=== PATIENT | male | born 1975 | race Caucasian/White ===

== ENCOUNTER 2017-04-07 13:50 | Emergency (ER) | payer MEDICAID ==
[2017-04-07 14:04] VITALS: BP 113/80
--- NOTE | 2017-04-07 14:32 | UC ---
Back Pain HPI - HPI Summary HPI Summary: is treated with 60 mg of Methadone daily for back pain---past 2 days has pain lateral to spine seems to be on both sides of back on and off - History of Current Complaint Chief Complaint: UCBackPain Stated Complaint: LOWER BACK INJURY Time Seen by Provider: 04/07/17 14:15 Hx Obtained From: Patient Onset/Duration: Gradual Onset, Lasting Days - 2, Still Present Timing: Constant Severity Initially: Moderate Severity Currently: Moderate Pain Intensity: 6 Pain Scale Used: 0-10 Numeric Back Pain: Is Discrete @ - right and left side of spinf lumbar to thorasic spine Character: Aching, Throbbing, Spasmodic, Stiffness Aggravating: Movement, Lifting, Bending Alleviating: Rest, Position Associated Signs And Symptoms: Positive: Negative Related History: Previous Back Injury - Allergies/Home Medications Allergies/Adverse Reactions: Allergies Allergy/AdvReac Type Severity Reaction Status Date / Time Bee Venom Allergy Severe Anaphylatic Verified 07/22/14 11:50 Shock Sulfa Drugs Allergy Unknown Verified 07/22/14 11:50 Reaction Details PMH/Surg Hx/FS Hx/Imm Hx Previously Healthy: No - chronic back pain Endocrine History Of: Denies: Diabetes Cardiovascular History Of: Denies: Cardiac Disorders, Hypertension, Pacemaker/ICD GI/ History Of: Reports: Ulcer - Surgical History Surgical History: Yes Surgery Procedure, Year, and Place: Lt KNEE- 20+ YRS AGO. neck/spinal surgery - 3 vertebrae replaced. 2012 - Family History Known Family History: Positive: None Family History: no cardio vascular issues reported in family lineage - Social History Occupation: Employed Full-time - contractor Lives: With Family Alcohol Use: Occasionally Alcohol Amount: 3 beers Substance Use Type: Marijuana Smoking Status (MU): Heavy Every Day Tobacco Smoker Type: Cigarettes Amount Used/How Often: 1 PPD Length of Time of Smoking/Using Tobacco: since age 6 Have You Smoked in the Last Year: Yes Cessation Counseling: Counseled 3+Min - 10 Min - Immunization History Most Recent Influenza Vaccination: NEVER Most Recent Tetanus Shot: 1 YR AGO Most Recent Pneumonia Vaccination: UNKNOWN Review of Systems Constitutional: Negative Skin: Negative Eyes: Negative ENT: Negative Respiratory: Negative Cardiovascular: Negative Gastrointestinal: Negative Genitourinary: Negative Motor: Negative Neurovascular: Negative Musculoskeletal: Arthralgia - low/mid back pain, Myalgia - low mid lateral back pain Neurological: Negative Psychological: Negative All Other Systems Reviewed And Are Negative: Yes Physical Exam Triage Information Reviewed: Yes Appearance: No Pain Distress, Pain Distress - mild, Thin Vital Signs: Initial Vital Signs Temp 99.1 F 04/07/17 13:57 Pulse 95 04/07/17 13:57 Resp 16 04/07/17 13:57 BP 113/80 04/07/17 13:57 Pulse Ox 97 04/07/17 13:57 Eye Exam: Normal Eyes: Positive: Conjunctiva Clear ENT Exam: Normal ENT: Positive: Normal ENT inspection, Hearing grossly normal. Negative: Nasal congestion, Nasal drainage, Tonsillar swelling, Tonsillar exudate, Trismus, Muffled/hoarse voice Dental Exam: Normal Neck exam: Normal Neck: Positive: 1 Respiratory Exam: Normal Respiratory: Positive: No respiratory distress, No accessory muscle use Cardiovascular Exam: Normal Cardiovascular: Positive: RRR, Pulses Normal, Brisk Capillary Refill Musculoskeletal Exam: Normal Musculoskeletal: Positive: Strength Intact, No Edema, ROM Limited @ - low back Neurological Exam: Normal Neurological: Positive: Alert, Muscle Tone Normal Psychological Exam: Normal Skin Exam: Normal Back Pain Course/Dx - Course Course Of Treatment: mabic, flexeril, rest follow with pcp - Differential Dx/Diagnosis Differential Diagnosis/HQI/PQRI: Fracture, Osteoporosis, Strain, Sprain Provider Diagnoses: muscle strain low/mid back, nicotine dependant Discharge - Discharge Plan Condition: Stable Disposition: HOME Prescriptions: Cyclobenzaprine TAB* [Flexeril 10 MG TAB*] 10 mg PO TID PRN #15 tab PRN Reason: muscle spasm Meloxicam(NF) [Mobic(NF)] 7.5 mg PO DAILY PRN #40 tab PRN Reason: pain Patient Education Materials: Low Back Strain (ED), Muscle Spasm (ED), Lower Back Exercises (ED) Referrals: Willie Puente MD [Primary Care Provider] - 5 Days
== END 2017-04-07 14:53 | disposition home or self-care (01) ==
LOC: UCEAST 13:50
DX: S39.012A Strain of muscle, fascia and tendon of lower back, initial encounter (principal); X58.XXXA Exposure to other specified factors, initial encounter; Y93.9 Activity, unspecified; Y92.9 Unspecified place or not applicable; Z88.2 Allergy status to sulfonamides; Z91.030 Bee allergy status; F17.210 Nicotine dependence, cigarettes, uncomplicated; Z71.6 Tobacco abuse counseling
CPT/HCPCS: 99212; G0463

== ENCOUNTER 2018-10-28 00:36 | Emergency (ER) | payer OTHER ==
--- NOTE | 2018-10-28 01:24 | ED ---
Shortness of Breath - HPI Summary HPI Summary: The patient is a 43 y/o M presenting to [facility] with a chief complaint of sudden onset SOB that started right before arriving. He states that he was sitting on the couch when the chest tightness started, and he was feeling fine earlier in the day. He additionally c/o nonproductive cough. He reports that he's been feeling more lethargic than usual for the last month, and he notes that he's been having nausea and vomiting a few times a week for months, but he has a GI appt at the end of the month. He vomited once earlier today before onset of SOB. He takes methadone, trazadone, and other stomach medications. Heavy smoker. - History of Current Complaint Chief Complaint: EDShortnessOfBreath Time Seen by Provider: 10/28/18 01:06 Hx Obtained From: Patient Onset/Duration: Sudden Onset, Lasting Hours, Still Present Current Severity: Moderate Dyspnea At: Rest Aggrevating Factors: Nothing Alleviating Factors: Nothing Associated Signs & Symptoms: Cough (Nonproductive) - Allergy/Home Medications Allergies/Adverse Reactions: Allergies Allergy/AdvReac Type Severity Reaction Status Date / Time bee venom protein (honey bee) Allergy Anaphylatic Verified 10/28/18 01:05 Shock Sulfa (Sulfonamide Allergy Unknown Verified 10/28/18 01:05 Antibiotics) Reaction Details PMH/Surg Hx/FS Hx/Imm Hx Endocrine/Hematology History: Denies: Hx Diabetes, Hx Sickle Cell Disease Cardiovascular History: Denies: Hx Hypertension, Hx Pacemaker/ICD Respiratory History: Denies: Other Respiratory Problems/Disorders GI History: Reports: Hx Gastroesophageal Reflux Disease, Hx Ulcer Denies: Other GI Disorders History: Denies: Other Problems/Disorders Sensory History: Reports: Hx Contacts or Glasses - GLASSES Denies: Hx Hearing Aid Opthamlomology History: Reports: Hx Contacts or Glasses - GLASSES Psychiatric History: Denies: Hx Panic Disorder - Surgical History Surgery Procedure, Year, and Place: Lt KNEE- 20+ YRS AGO. neck/spinal surgery - 3 vertebrae replaced. 2012 Hx Anesthesia Reactions: No - PT REPORTS HIGH TOLERANCE TO ANESTHESIA Infectious Disease History: No Infectious Disease History: Denies: Traveled Outside the [place] in Last 30 Days - Family History Known Family History: Negative: Cardiac Disease, Hypertension Family History: no cardio vascular issues reported in family lineage - Social History Alcohol Use: Daily Alcohol Amount: 10 beers per day Substance Use Type: Reports: Marijuana Smoking Status (MU): Heavy Every Day Tobacco Smoker Type: Cigarettes Amount Used/How Often: 1 PPD Length of Time of Smoking/Using Tobacco: since age 6 Have You Smoked in the Last Year: Yes Review of Systems Positive: Other - lethargy Positive: Other - chest tightness Positive: Shortness Of Breath, Cough - nonproductive Positive: Vomiting, Nausea All Other Systems Reviewed And Are Negative: Yes Physical Exam - Summary Physical Exam Summary: Appearance: Well-appearing, Well-nourished, lying in bed comfortably Skin: Warm, dry, no obvious rash Eyes: sclera anicteric, no conjunctival pallor ENT: mucous membranes moist, pharynx appears normal Neck: Supple, nontender Respiratory: Clear to auscultation, no signs of respiratory distress Cardiovascular: Normal S1, S2. No murmurs. Normal distal pulses in tibial and radial bilaterally. Abdomen: Soft, nontender, normal active bowel sounds present Musculoskeletal: Normal, Strength/ROM Intact Neurological: A&Ox3, awake and alert, mentation is normal, speech is fluent and appropriate Psychiatric: affect is normal, does not appear anxious or depressed Triage Information Reviewed: Yes Vital Signs On Initial Exam: Initial Vitals Temp Pulse Resp BP Pulse Ox 99 F 96 20 140/86 98 10/28/18 00:38 10/28/18 00:38 10/28/18 00:38 10/28/18 00:38 10/28/18 00:38 Vital Signs Reviewed: Yes Diagnostics - Vital Signs Vital Signs Temp Pulse Resp BP Pulse Ox 10/28/18 00:51 80 26 97 10/28/18 00:38 99 F 96 20 140/86 98 - Laboratory Result Diagrams: 10/28/18 01:24 10/28/18 01:24 Lab Statement: Any lab studies that have been ordered have been reviewed, and results considered in the medical decision making process. - Radiology CXR Radiology Interpretation Completed By: Radiologist Summary of Radiographic Findings: No acute disease. ED physician has reviewed this report. - EKG 00:42 Cardiac Rate: NL - 81 BPM EKG Rhythm: Sinus Rhythm Summary of EKG Findings: NSR at 81BPM, P waves, QRS complex, and T waves are within normal limits, T waves and intervals are normal, no ischemic changes. This is a normal EKG. Re-Evaluation - Re-Evaluation First Eval Re-Evaluation Time: 04:40 Change: Unchanged Comment: I spoke with the patient concerning discharge home. Course/Dx - Course Course Of Treatment: The patient is a 43 y/o M presenting to [facility] with a chief complaint of sudden onset SOB that started right before arriving while he was sitting down. He additionally c/o nonproductive cough, lethargy, and nausea and vomiting. He vomited once earlier today before onset of SOB, but he has been having GI issues for a few months and will see a provider at the end of the month. He takes methadone, trazadone, and other stomach medications. Heavy smoker. Physical exam is normal. In the ED course, bloodwork is unremarkable. EKG is normal. CXR is negative. The cause of the patient's dyspnea is not entirely clear, but he appears improved and his workup was not demonstrated any serious abnormalities.. He will be discharged home with follow up with PCP. He agrees with this plan and understands the need for return if symptoms worsen. - Diagnoses Provider Diagnoses: Dyspnea Discharge - Sign-Out/Discharge Documenting (check all that apply): Patient Departure - Patient will be discharged home. - Discharge Plan Condition: Good Disposition: HOME Patient Education Materials: Noncardiac Chest Pain (ED) Referrals: Randell Fleming MD [Medical Doctor] - (As scheduled) - Billing Disposition and Condition Condition: GOOD Disposition: Home - Attestation Statements Document Initiated by Rogelio: Yes Documenting Scribe: Melly Roper Provider For Whom Rogelio is Documenting (Include Credential): MD Renee Chunibe Attestation: Melly Arriaza scribed for Dr. Yayo Del Rosario MD on 10/28/18 at 0655. Scribe Documentation Reviewed: Yes Provider Attestation: The documentation as recorded by the Melly murphy accurately reflects the service I personally performed and the decisions made by me, Dr. Yayo Del Rosario MD Status of Scribnoemy Document: Viewed
[2018-10-28 01:32] LABS: ABS Basophils 0.1 10^3/ul (0-0.2); ABS Eosinophils 0.4 10^3/ul (0-0.6); ABS Lymphocytes 1.7 10^3/ul (1.0-4.8); ABS Monocytes 0.7 10^3/ul (0-0.8); ABS Neutrophils 4.1 10^3/ul (1.5-7.7); ABS Nucleated RBC 0 10^3/ul; Eosinophil % 6.3 %; Hematocrit 43 % (42-52); Lymphocyte % 24.1 %; Mean Corpuscular HGB Conc 35 g/dl (31-36); Mean Corpuscular Hemoglobin 32 pg (27-31); Mean Corpuscular Volume 93 fL (80-94); Mean Platelet Volume 7.5 fL (7.4-10.4); Nucleated Red Blood Cells % 0.1; Platelet Count 302 10^3/ul (150-450); Red Blood Count 4.67 10^6/ul (4.00-5.40); Red Cell Distribution Width 13 % (10.5-15)
[2018-10-28 01:49] LABS: EGFR Non-African American 98.8 (>60)
[2018-10-28 05:01] VITALS: BP 128/82
== END 2018-10-28 05:05 | disposition home or self-care (01) ==
LOC: ED 00:36
DX: R06.00 Dyspnea, unspecified (principal); R06.02 Shortness of breath; R07.89 Other chest pain; R11.2 Nausea with vomiting, unspecified; F17.210 Nicotine dependence, cigarettes, uncomplicated; Z88.2 Allergy status to sulfonamides
CPT/HCPCS: 36415; 71046; 80053; 83605; 84484; 85025; 85379; 93005; 99283

== ENCOUNTER 2023-11-24 11:32 | Inpatient (IN) ==
[2023-11-24] MEDS: LACTATED RINGERS IV ONE (12:16)
[2023-11-24 12:37] LABS: ABS Lymphocytes 0.2 10^3/uL (1.0-4.8); ABS Monocytes 0.3 10^3/uL (0.0-1.1); ABS Nucleated RBC 0.01 10^3/ul; Eosinophil % 0.1 %; Hematocrit 38.6 % (38-53); Hemoglobin 13.7 g/dL (13.2-16.3); Mean Corpuscular Hemoglobin 32.1 pg (27-33); Mean Corpuscular Hgb Conc 35.5 g/dL (31-36); Mean Corpuscular Volume 90.4 fL (80-97); Nucleated Red Blood Cells % 0.2 %/100WBC (0.0-0.8); Platelet Count 211 10^3/uL (150-450); Red Blood Count 4.27 10^6/uL (4.06-5.63); Red Cell Distribution Width 15.8 % (12-17); White Blood Count 4.5 10^3/uL (3.6-10.2)
[2023-11-24 12:40] LABS: Activated Partial Thrombo Time 35.6 seconds (26.0-38.0); INR 1.15 (0.83-1.13)
[2023-11-24 12:53] LABS: Albumin 3.9 g/dL (3.2-5.2); Albumin/Globulin Ratio 1.2 (1-3); C Reactive Protein 341.06 mg/L (<8.01); Calcium 9.2 mg/dL (8.6-10.3); Creatinine, Serum 0.63 mg/dL (0.67-1.17); Globulin 3.2 g/dL (2-4); Potassium 2.9 mmol/L (3.5-5.0); Total Bilirubin 0.7 mg/dL (0.2-1.0); Total Protein 7.1 g/dL (6.4-8.9); eGFR CKD-EPI 115.9 (>60)
[2023-11-24] MEDS: Cefepime 2 GM in Dextrose 2 GM/50 ML BAG IV ONE (14:06)
[2023-11-24 14:21] LABS: High Sensitivity Troponin 1 Hr 14 pg/mL (<20)
[2023-11-24] MEDS: Acetaminophen IV 1 GM/100ML 1,000 MG/100 ML BAG IV ONE (14:21)
[2023-11-24] MEDS: KCL 20 MEQ/100 ML IVPREMIX 20 MEQ/100 ML BAG IV SCH (14:21)
[2023-11-24 22:09] LABS: Urine Appearance Cloudy; Urine Bilirubin Negative (Negative); Urine Blood Negative (Negative); Urine Color Yellow; Urine Glucose Negative (Negative); Urine Ketones 1+ (Negative); Urine Nitrite Negative (Negative); Urine Protein 2+(100 mg/dL) (Negative); Urine Specific Gravity 1.028 (1.002-1.030); Urine Urobilinogen Negative (Negative)
[2023-11-24 22:27] LABS: Urine Bacteria Absent (Absent); Urine Red Blood Cell 1+(3-5/hpf) (Absent); Urine White Blood Cell Trace(0-5/hpf) (Absent)
[2023-11-24] MEDS ORDERED: Ondansetron 4 mg VIAL 2 MG/ML 2 ml VIAL IV PRN (22:37)
[2023-11-24] MEDS: Acetaminophen IV 1 GM/100ML 1,000 MG/100 ML BAG IV PRN (22:52)
[2023-11-25] MEDS: Potassium Chloride IV 20 MEQ in Lactated Ringers 1000 ml BAG 1,000 ML IVPB SCH (01:28)
[2023-11-25] MEDS: levETIRAcetam IV 1,250 MG in NS 0.9% 100 ml BAG 100 ML IVPB SCH (01:35)
[2023-11-25] MEDS: Enoxaparin 40 MG/0.4 ML SYR SUBCUT SCH (01:37)
[2023-11-25] MEDS: Cefepime 2 GM in Dextrose 2 GM/50 ML BAG IV SCH ×2 (03:52→03:55)
[2023-11-25 08:01] LABS: ABS Lymphocytes 0.4 10^3/uL (1.0-4.8); ABS Monocytes 0.2 10^3/uL (0.0-1.1); ABS Neutrophils 4.8 10^3/uL (1.5-7.6); Eosinophil % 0.2 %; Hematocrit 33.1 % (38-53); Hemoglobin 11.8 g/dL (13.2-16.3); Lymphocyte % 6.6 %; Mean Corpuscular Hemoglobin 32.3 pg (27-33); Mean Corpuscular Hgb Conc 35.5 g/dL (31-36); Mean Corpuscular Volume 91.1 fL (80-97); Mean Platelet Volume 7.2 fL (7.5-11.2); Platelet Count 170 10^3/uL (150-450); Red Blood Count 3.63 10^6/uL (4.06-5.63); Red Cell Distribution Width 15.9 % (12-17); White Blood Count 5.4 10^3/uL (3.6-10.2)
[2023-11-25 08:22] LABS: Calcium 8.1 mg/dL (8.6-10.3); Creatinine, Serum 0.38 mg/dL (0.67-1.17); Magnesium 1.9 mg/dL (1.9-2.7); Potassium 3.2 mmol/L (3.5-5.0)
[2023-11-25] MEDS: KCL 20 MEQ/100 ML IVPREMIX 20 MEQ/100 ML BAG IV SCH (11:00)
[2023-11-25 11:55] LABS: Hematocrit 27.5 % (38-53); Hemoglobin 9.9 g/dL (13.2-16.3)
[2023-11-25 16:16] LABS: Hematocrit 31.3 % (38-53)
[2023-11-25] MEDS ORDERED: Pantoprazole 80 mg in NS BAG 80 MG/250 ML BAG IV SCH (17:00)
[2023-11-25] MEDS ORDERED: Lorazepam PYXIS KEY PRN (17:07)
[2023-11-25] MEDS: Pantoprazole VIAL 40 MG VIAL IV ONE (17:43)
[2023-11-25] MEDS: Iohexol 350 (CONTRAST) 500 ML MDV IV ONE (17:43)
[2023-11-25] MEDS: Morphine 2 MG/ML SYRINGE IV SCH (18:07)
[2023-11-26] MEDS: Lactated Ringers 1000 ml BAG 1,000 ML IV SCH (00:07)
[2023-11-26] MEDS: LORazepam 2 mg VIAL 1 ml IV PUSH PRN (01:11)
[2023-11-27] MEDS: Morphine ORAL CONCENTRATE 5 MG/0.25 ML ORAL.SYRIN SL PRN (21:50)
[2023-11-28] MEDS: Morphine ORAL CONCENTRATE 5 MG/0.25 ML ORAL.SYRIN SL PRN (03:58)
[2023-11-28 09:56] LABS: ABS Eosinophils 0.1 10^3/uL (0.0-0.5); ABS Lymphocytes 0.7 10^3/uL (1.0-4.8); ABS Monocytes 0.3 10^3/uL (0.0-1.1); ABS Neutrophils 1.9 10^3/uL (1.5-7.6); Eosinophil % 2.3 %; Hematocrit 30.9 % (38-53); Hemoglobin 10.8 g/dL (13.2-16.3); Lymphocyte % 23.4 %; Mean Corpuscular Hgb Conc 34.9 g/dL (31-36); Mean Corpuscular Volume 91.7 fL (80-97); Mean Platelet Volume 6.9 fL (7.5-11.2); Nucleated Red Blood Cells % 0.1 %/100WBC (0.0-0.8); Platelet Count 175 10^3/uL (150-450); Red Blood Count 3.37 10^6/uL (4.06-5.63); Red Cell Distribution Width 15.3 % (12-17)
[2023-11-28 10:15] LABS: Albumin/Globulin Ratio 1.1 (1-3); Calcium 7.8 mg/dL (8.6-10.3); Creatinine, Serum 0.33 mg/dL (0.67-1.17); Globulin 2.7 g/dL (2-4); Magnesium 1.9 mg/dL (1.9-2.7); Potassium 2.8 mmol/L (3.5-5.0); Total Bilirubin 0.7 mg/dL (0.2-1.0); Total Protein 5.7 g/dL (6.4-8.9); eGFR CKD-EPI 140.9 (>60)
[2023-11-28] MEDS: Potassium Chloride LIQUID 20 MEQ/15 ML LIQUID PO SCH (11:11)
[2023-11-28] MEDS: Venlafaxine XR 75 mg PO SCH (11:12)
[2023-11-28] MEDS: Ondansetron ODT 4 mg TAB 4 MG TAB PO SCH (11:12)
[2023-11-28] MEDS: Morphine ER 15 mg TAB ** extended release PO PRN (11:34)
[2023-11-28] MEDS ORDERED: Albuterol HFA INHALER 8 gm MDI INH PRN (12:31)
[2023-11-28] MEDS: Ondansetron 4 mg VIAL 2 MG/ML 2 ml VIAL IV ONE (14:06)
[2023-11-29 06:49] LABS: Hematocrit 28.5 % (38-53); Hemoglobin 10.2 g/dL (13.2-16.3); Mean Corpuscular Hemoglobin 32.3 pg (27-33); Mean Corpuscular Hgb Conc 35.7 g/dL (31-36); Mean Corpuscular Volume 90.5 fL (80-97); Mean Platelet Volume 7.3 fL (7.5-11.2); Platelet Count 182 10^3/uL (150-450); Red Blood Count 3.15 10^6/uL (4.06-5.63); Red Cell Distribution Width 15.2 % (12-17); White Blood Count 3.1 10^3/uL (3.6-10.2)
[2023-11-29 07:07] LABS: Calcium 8.1 mg/dL (8.6-10.3); Creatinine, Serum 0.34 mg/dL (0.67-1.17); Magnesium 1.8 mg/dL (1.9-2.7); Potassium 3.8 mmol/L (3.5-5.0); eGFR CKD-EPI 139.6 (>60)
[2023-11-29 07:17] LABS: ABS Lymphocytes 0.7 10^3/uL (1.0-4.8); ABS Monocytes 0.4 10^3/uL (0.0-1.1); ABS Neutrophils 1.9 10^3/uL (1.5-7.6); Eosinophil % 1.4 %; Lymphocyte % 23.9 %; Nucleated Red Blood Cells % 0.2 %/100WBC (0.0-0.8)
[2023-11-29 10:29] VITALS: BP 102/65
== END 2023-11-29 16:27 | disposition home or self-care (01) | DRG 720 ==
LOC: ED 11:32 → EDHOLD 22:37 → SUATTDRO 22:37 → MED 23:50
PROVIDERS: ADMIT Student in an Organized Health Care Education/Training Program; ATTEND Student in an Organized Health Care Education/Training Program

== ENCOUNTER 2024-05-10 15:32 | Inpatient (IN) ==
[2024-05-10] MEDS: NS 0.9% 1000 ml BAG 1,000 ML IV ONE (18:42)
[2024-05-10] MEDS: Ondansetron 4 mg VIAL 2 MG/ML 2 ml VIAL IV ONE (18:42)
[2024-05-10 18:52] LABS: ABS Basophils 0.1 10^3/uL (0.0-0.1); ABS Eosinophils 0.2 10^3/uL (0.0-0.5); ABS Lymphocytes 1.3 10^3/uL (1.0-4.8); ABS Monocytes 1.2 10^3/uL (0.0-1.1); Eosinophil % 1.4 %; Hematocrit 39.3 % (38-53); Hemoglobin 13.4 g/dL (13.2-16.3); Lymphocyte % 11.9 %; Mean Corpuscular Hemoglobin 31.4 pg (27-33); Mean Corpuscular Hgb Conc 34.1 g/dL (31-36); Mean Corpuscular Volume 92.2 fL (80-97); Mean Platelet Volume 7.4 fL (7.5-11.2); Platelet Count 399 10^3/uL (150-450); Red Blood Count 4.27 10^6/uL (4.06-5.63); Red Cell Distribution Width 17.9 % (12-17); White Blood Count 10.7 10^3/uL (3.6-10.2)
[2024-05-10 19:09] LABS: INR 0.96 (0.83-1.13)
[2024-05-10 19:22] LABS: Albumin 3.8 g/dL (3.2-5.2); Albumin/Globulin Ratio 1.2 (1-3); C Reactive Protein 6.42 mg/L (<8.01); Calcium 9.6 mg/dL (8.6-10.3); Creatinine, Serum 0.53 mg/dL (0.67-1.17); Globulin 3.1 g/dL (2-4); Potassium 3.6 mmol/L (3.5-5.0); Total Bilirubin 0.8 mg/dL (0.2-1.0); Total Protein 6.9 g/dL (6.4-8.9); eGFR CKD-EPI 121.3 (>60)
[2024-05-10] MEDS: Iohexol 350 (CONTRAST) 500 ML MDV IV ONE (20:47)
[2024-05-10] MEDS ORDERED: Naloxone Nasal Spray 4 MG/0.1 ML NASAL.SPR INTRANASAL PRN (22:41)
[2024-05-10] MEDS: Dexamethasone IV 4 MG/ML VIAL 1 ml VIAL IV SLOW PU ONE (22:48)
[2024-05-10] MEDS: NS 0.9% 1000 ml BAG 1,000 ML IV SCH (23:25)
[2024-05-11] MEDS: Ondansetron 4 mg VIAL 2 MG/ML 2 ml VIAL IV PRN (01:20)
[2024-05-11] MEDS: Pantoprazole VIAL 40 MG VIAL IV SCH (02:00)
[2024-05-11] MEDS: Dexamethasone IV 4 MG/ML VIAL 1 ml VIAL IV SLOW PU SCH ×2 (05:33→14:10)
[2024-05-11] MEDS ORDERED: Morphine ER 30 mg TAB ** extended release PO SCH (09:00)
[2024-05-11] MEDS: Lactated Ringers 1000 ml BAG 1,000 ML IV SCH (09:22)
[2024-05-11] MEDS ORDERED: Lorazepam PYXIS KEY PRN (09:47)
[2024-05-11] MEDS: LORazepam 2 mg VIAL 1 ml IV PUSH ONE (10:17)
[2024-05-11] MEDS ORDERED: LORazepam 2 mg VIAL 1 ml ONE (11:09)
[2024-05-11] MEDS: LORazepam 2 MG/ML 1 mL Syringe IV ONE (11:15)
[2024-05-11] MEDS ORDERED: Polyethylene Glycol 3350 17 GM PACKET PO PRN (11:21)
[2024-05-11] MEDS ORDERED: Senna TAB 8.6 mg TAB PO PRN (11:21)
[2024-05-11] MEDS ORDERED: Atropine 1% (ORAL/SL) 15 ML BTL SL PRN (11:21)
[2024-05-11] MEDS ORDERED: Morphine ER 15 mg TAB ** extended release PO SCH (21:00)
[2024-05-12 07:35] LABS: Calcium 9.4 mg/dL (8.6-10.3); Creatinine, Serum 0.46 mg/dL (0.67-1.17); Magnesium 2.2 mg/dL (1.9-2.7); Phosphorus 4.8 mg/dL (2.5-5.0); eGFR CKD-EPI 126.6 (>60)
[2024-05-12] MEDS: Morphine 2 MG/ML SYRINGE IV PRN (09:39)
[2024-05-13] MEDS ORDERED: Morphine ORAL CONCENTRATE 5 MG/0.25 ML ORAL.SYRIN PO PRN (22:05)
[2024-05-13] MEDS ORDERED: Ondansetron ODT 4 mg TAB 4 MG TAB SL PRN (22:50)
[2024-05-13] MEDS: Morphine ORAL CONCENTRATE 5 MG/0.25 ML ORAL.SYRIN PO SCH (22:51)
[2024-05-14 05:27] VITALS: BP 125/84
[2024-05-14] MEDS: Dexamethasone Oral Solution 1 MG/ML 10 ML UDC (10 MG) PO SCH (08:23)
== END 2024-05-14 12:00 | disposition hospice, inpatient (51) | DRG 41 ==
LOC: EDHOLD 15:32 → ED 15:32 → SUATTDRO 22:37 → SSU 05-11 12:35
PROVIDERS: ADMIT Hospitalist; ATTEND Internal Medicine